=== PATIENT | female | born 1975 | race Hispanic/Latino ===

== ENCOUNTER 2024-04-28 23:26 | Emergency (ER) | payer OTHER ==
[2024-04-29] MEDS ORDERED: ONDANSETRON 4 MG/2 ML VIAL ONE (00:35)
[2024-04-29] MEDS ORDERED: MORPHINE 4 MG/ML SYR ONE (00:36)
[2024-04-29] MEDS ORDERED: NA CHLORIDE 0.9% 1,000 ML ONE (00:36)
[2024-04-29] MEDS ORDERED: LIDOCAINE 1% 20 ML MDV ONE (01:03)
[2024-04-29 01:04] LABS: Specific Gravity 1.013 (1.005-1.030); Sqamous Epithelial None Seen /HPF (None Seen); Urine Bacteria None Seen /HPF (<20); Urine Bilirubin NEGATIVE (Negative); Urine Blood Negative (Negative); Urine Clarity Extremely Turbid (Clear); Urine Color Light-Yellow (Yellow); Urine Culture Reflex Order NOT NEEDED; Urine Glucose NEGATIVE (Negative); Urine Ketones NEGATIVE (Negative); Urine Microscopic Reflex YN ORDER UMIC; Urine Nitrite NEGATIVE (Negative); Urine Protein NEGATIVE (Negative); Urine RBC None Seen /HPF (None Seen); Urine Urobilinogen Normal (Normal); Urine WBC None Seen /HPF (<5); Urine pH 6.5 (5.0-7.0)
[2024-04-29 01:14] LABS: Albumin 3.1 g/dL (3.4-5.0); Albumin/Globulin Ratio 0.6 (1.1-1.8); Anion Gap 9.9 mEq/L (5.0-15.0); Bilirubin Total 0.4 mg/dL (0.2-1.0); Potassium 3.9 mEq/L (3.5-5.1); Protein, Total 8.1 g/dL (6.4-8.2)
[2024-04-29 01:18] LABS: Absolute Basophils 0.1 K/uL (0-0.5); Absolute Eosinophils 0.2 K/uL (0-0.5); Absolute Lymphocytes (CBC) 2.7 K/uL (0.7-4.9); Absolute Monocytes 0.5 K/uL (0.1-1.3); Absolute Neutrophil 5.9 K/uL (1.8-8.0); Basophils % 0.9 % (0-1.3); Eosinophils % 1.7 % (0-4.4); Hematocrit 50.5 % (36.0-45.0); Hemoglobin 16.7 g/dL (12.0-15.0); Lymphocytes % 28.9 % (15.3-44.8); MCH 29.9 pg (27.0-35.0); MCV 90.5 fL (80-100); MPV 8.9 fL (7.6-11.3); Monocytes % 5.8 % (3.3-12.3); Neutrophils % 62.7 % (41.7-73.7); Nucleated Red Blood Cells % 0.1 % (0-0); Platelets 344 thou/uL (152-406); RBC Red Blood Cell Count 5.58 M/uL (3.86-4.86); Red Cell Distribution Width 14.1 % (12.1-15.2)
[2024-04-29] MEDS ORDERED: CLINDAMYCIN 900MG/D5W 900 MG/50 ML IVPB IV ONE (02:05)
--- NOTE | 2024-04-29 03:45 | EDPHYS ---
Physician Documentation [facility] Name: Angélica Murdock Age: 49 yrs Sex: Female : 1975 Arrival Date: 04/28/2024 Time: 23:26 Bed 6 Private MD: ED Physician Mari Cormier HPI: 04/28 23:50 This 49 yrs old Female presents to ER via Ambulatory with complaints of cp Abscess. 23:50 The patient presents with an abscess of the right pannus . Description: draining, cp erythematous, swollen. 23:50 Onset: The symptoms/episode began/occurred 3 day(s) ago. Possible cause(s): unknown. cp Associated signs and symptoms: Pertinent positives: drainage, erythema, Pertinent negatives: fever, vomiting. COLLISION ESTIMATOR: 23:51 LMP N/A - Post-menopause, Not vc1 Historical: - Allergies: 23:49 Augmentin; vc1 - PMHx: 23:49 Anxiety; Depression; Hypertension; Obesity; vc1 - PSHx: 23:49 myomectomy; Cholecystectomy; gastric bypass; vc1 - Immunization history:: Client reports having NOT received the Covid vaccine. Flu vaccine is not up to date. - Infectious Disease History:: Denies. - Social history:: Smoking status: Patient reports the use of cigarette tobacco products, smokes one-half pack cigarettes per day. ROS: 23:55 Constitutional: Negative for body aches, chills, fever, poor PO intake, cp 23:55 Cardiovascular: Negative for chest pain, palpitations, cp 23:55 Respiratory: Negative for cough, shortness of breath, wheezing, 23:55 Abdomen/GI: Positive for abdominal pain, of the umbilical area and right lower quadrant, Negative for vomiting, diarrhea, constipation, 23:55 Skin: Positive for abscess, of the right pannus, 23:55 Neuro: Negative for altered mental status, dizziness, weakness, 23:55 All other systems are negative, Exam: 23:58 Constitutional: The patient appears in no acute distress, alert, awake, non-toxic, well cp developed, well nourished, obese, uncomfortable, 23:58 Head/Face: Normocephalic, atraumatic. cp 23:58 Eyes: Periorbital structures: appear normal, Conjunctiva: normal, no exudate, no injection, Sclera: no appreciated abnormality, Lids and lashes: appear normal, bilaterally, 23:58 ENT: External ear(s): are unremarkable, Mouth: Lips: moist, Oral mucosa: moist, Posterior pharynx: Airway: no evidence of obstruction, patent, 23:58 Chest/axilla: Inspection: normal, 23:58 Cardiovascular: Rate: normal, 23:58 Respiratory: the patient does not display signs of respiratory distress, Respirations: normal, no use of accessory muscles, no retractions, 23:58 Abdomen/GI: Inspection: obese mild area of erythema right pannus with small open wound, no drainage expressed, tender to palpation, mild induration, 23:58 Back: pain, is absent, ROM is normal, cp 23:58 Neuro: Orientation: to person, place \T\ time. Mentation: is normal, Vital Signs: 23:48 Weight 167.83 kg; Height 5 ft. 1 in. ; Pain 8/10; vc1 23:53 BP 151 / 98; Pulse 94; Resp 18; Temp 99.8; Pulse Ox 100% ; vc1 12/03 02:34 BP 139 / 76; Pulse 89; Resp 18; Pulse Ox 98% ; cp4 03:55 BP 118 / 69; Pulse 87; Resp 18; Pulse Ox 98% ; cp4 12/02 23:48 Body Mass Index 69.91 (167.83 kg, 154.94 cm) vc1 12/02 23:48 Pain Scale: Adult vc1 MDM: 12/ 23:50 Medical Screening Exam initiated cp 04/29 00:00 Differential diagnosis: abscess, cellulitis, insect bite, sepsis. cp 02:00 Data reviewed: vital signs, nurses notes, lab test result(s). cp 02:00 ED course: VSS. Awaiting results of CT abdomen/pelvis. Will discharge to home with oral cp antibiotics if CT negative for abscess. 03:44 ED course: Discussed with patient adrenal gland results on CT. Outpatient follow-up sp3 with PCP will be the course. Continue current treatment plan as well.. 04/29 00:19 Order name: CBC with Diff; Complete Time: 01:27 cp 04/29 00:19 Order name: CMP; Complete Time: 01:16 cp 04/29 01:16 Interpretation: Normal except: GLUC 132; ALK 122; ALB 3.1; GLOB 5.0; A/G 0.6. cp 04/29 00:19 Order name: Lipase; Complete Time: 01:16 cp 04/29 00:19 Order name: Urinalysis w/ reflexes; Complete Time: 01:16 cp 04/29 00:19 Order name: CT Abd/Pelvis - IV Contrast Only cp 04/29 00:19 Order name: IV Saline Lock; Complete Time: 00:49 cp 04/29 00:19 Order name: Labs collected and sent; Complete Time: 00:49 cp 12 00:59 Order name: I\T\D Setup; Complete Time: 00:59 cp Administered Medications: 00:49 Drug: Ondansetron IVP 4 mg IVP once; over 2 minutes Route: IVP; Site: right antecubital;cp4 01:30 Follow up: Response: No adverse reaction cp4 00:49 Drug: NS 0.9% IV 1000 ml IV at 1 bolus Per protocol; to be given as a bolus over 60 cp4 minutes Route: IV; Rate: 1 bolus; Site: right antecubital; 02:14 Follow up: IV Status: Completed infusion cp4 00:49 Drug: morphine IVP or IV 4 mg IVP once over 4 mins Route: IVP; Infused Over: 4 mins; cp4 Site: right antecubital; 01:30 Follow up: Response: No adverse reaction; Pain is decreased cp4 02:14 Drug: Lidocaine Infiltration (2 %) 10 ml 5 ml Infiltration once; with epinephrine cp4 {Note: Given by provider.} Volume: 5 ml; Route: Infiltration; 02:14 Drug: Clindamycin IVPB 900 mg IVPB once over 30 mins; (mix in 50 mL) Route: IVPB; cp4 Infused Over: 30 mins; Site: right antecubital; 02:33 Follow up: IV Status: Completed infusion cp4 Disposition: 03:45 I agree with the assessment and plan of care. I reviewed the patient's care provided by sp3 Advanced Practice Provider \T\ agree w/ the diagnosis \T\ care plan. I personally saw the pt \T\ performed a substantive portion of the visit, incldng all aspects of the (History/Exam/Medical Decision Making). Disposition Summary: 04/29/24 03:45 Discharge Ordered Notes: Location: Home sp3 Problem: new sp3 Symptoms: have improved sp3 Condition: Stable sp3 Diagnosis - Cellulitis of abdominal wall sp3 Followup: cp - With: Kale Rangel MD - When: 2 - 3 days - Reason: Worsening of condition Discharge Instructions: - Discharge Summary Sheet cp - Cellulitis, Adult cp Forms: - Medication Reconciliation Form sp3 - Antibiotic Education sp3 - Prescription Opioid Use sp3 - Patient Portal Instructions sp3 - Leadership Thank You Letter sp3 Prescriptions: - Clindamycin HCl 300 mg Oral Capsule - take 1 capsule ORAL route every 6 hours for 10 days; 40 capsule; Refills: 0, cp Product Selection Permitted Signatures: Dispatcher [employer] EDMS Stewart Andino PA PA cp Mari Cormier MD MD sp3 Nori Olivares RN RN vc1 Zayra Csataneda cp4 Corrections: (The following items were deleted from the chart) 00:19 00:19 CBC+H.LAB.BRZ ordered. EDMS EDMS 00:19 00:19 COMPREHENSIVE METABOLIC PANEL+C.LAB.BRZ ordered. EDMS EDMS 00:19 00:19 LIPASE+C.LAB.BRZ ordered. EDMS EDMS 00:19 00:19 Urinalysis+U.LAB.BRZ ordered. EDMS EDMS
--- NOTE | 2024-04-29 03:45 | ER ---
Nurse's Notes [facility] Name: Angélica Murdock Age: 49 yrs Sex: Female : 1975 Arrival Date: 04/28/2024 Time: 23:26 Bed 6 Private MD: Diagnosis: Cellulitis of abdominal wall Presentation: 04/28 23:48 Chief complaint: Patient states: boil on right side of stomach and pressure on belly vc1 button. Coronavirus screen: Client denies travel out of the [place] in the last 14 days. At this time, the client does not indicate any symptoms associated with coronavirus-19. Ebola Screen: Patient negative for fever greater than or equal to 101.5 degrees Fahrenheit, and additional compatible Ebola Virus Disease symptoms Patient denies exposure to infectious person. Patient denies travel to an Ebola-affected area in the 21 days before illness onset. No symptoms or risks identified at this time. Initial Sepsis Screen: Does the patient meet any 2 criteria? No. Patient's initial sepsis screen is negative. Does the patient have a suspected source of infection? No. Patient's initial sepsis screen is negative. Risk Assessment: Do you want to hurt yourself or someone else? Patient reports no desire to harm self or others. Onset of symptoms was April 26, 2024. Care prior to arrival: None. 23:48 Method Of Arrival: Ambulatory vc1 23:48 Acuity: [place] 3 vc1 [place]: 23:51 LMP N/A - Post-menopause, Not vc1 Historical: - Allergies: 23:49 Augmentin; vc1 - PMHx: 23:49 Anxiety; Depression; Hypertension; Obesity; vc1 - PSHx: 23:49 myomectomy; Cholecystectomy; gastric bypass; vc1 - Immunization history:: Client reports having NOT received the Covid vaccine. Flu vaccine is not up to date. - Infectious Disease History:: Denies. - Social history:: Smoking status: Patient reports the use of cigarette tobacco products, smokes one-half pack cigarettes per day. Screenin:51 Abuse screen: Denies threats or abuse. Nutritional screening: No deficits noted. vc1 Tuberculosis screening: No symptoms or risk factors identified. 04/29 00:12 [facility] ED Fall Risk Assessment (Adult) History of falling in the last 3 months, cp4 including since admission No falls in past 3 months (0 pts) Confusion or Disorientation No (0 pts) Intoxicated or Sedated No (0 pts) Impaired Gait No (0 pts) Mobility Assist Device Used No (0 pt) Altered Elimination No (0 pt) Score/Fall Risk Level 0 - 2 = Low Risk Oriented to surroundings, Maintained a safe environment, Assessed \T\ reinforced patient's understanding of fall precautions, Hourly rounding (assess needs \T\ fall precautionary measures) done. Assessment: 00:12 General: Appears in no apparent distress. uncomfortable, Behavior is calm, cooperative, cp4 appropriate for age. Pain: Complains of pain in abdomen Pain does not radiate. Pain currently is 8 out of 10 on a pain scale. Neuro: Level of Consciousness is awake, alert, obeys commands, Oriented to person, place, time, situation. Cardiovascular: Patient's skin is warm and dry. Respiratory: Airway is patent Respiratory effort is even, unlabored. GI: No signs and/or symptoms were reported involving the gastrointestinal system. : No signs and/or symptoms were reported regarding the genitourinary system. EENT: No signs and/or symptoms were reported regarding the EENT system. Derm: Abscess located on abdomen is nickel sized, Reports pain that is 8 out of 10 on a pain scale. Vital Signs: 04/28 23:48 Weight 167.83 kg; Height 5 ft. 1 in. ; Pain 8/10; vc1 23:53 BP 151 / 98; Pulse 94; Resp 18; Temp 99.8; Pulse Ox 100% ; vc1 04/29 02:34 BP 139 / 76; Pulse 89; Resp 18; Pulse Ox 98% ; cp4 03:55 BP 118 / 69; Pulse 87; Resp 18; Pulse Ox 98% ; cp4 04/28 23:48 Body Mass Index 69.91 (167.83 kg, 154.94 cm) vc1 04/28 23:48 Pain Scale: Adult vc1 ED Course: 04/28 23:33 Patient arrived in ED. gm2 23:37 Stewart Andino PA is PHCP. cp 23:37 Mari Cormier MD is Attending Physician. cp 23:49 Triage completed. vc1 23:51 Arm band placed on right wrist. vc1 04/29 00:12 Placed in gown. Bed in low position. Call light in reach. Side rails up X2. cp4 00:33 Zayra Castaneda is Primary Nurse. cp4 00:48 Initial lab(s) drawn, by me, sent to lab. Urine collected: clean catch specimen, cp4 cloudy. Inserted saline lock: 20 gauge in right antecubital area, using aseptic technique. Blood collected. Flushed with 10 mL NS. 00:50 Radiology exam delayed due to lab results not completed at this time. (BUN/Creatinine). ls3 01:52 CT Abd/Pelvis - IV Contrast Only In Process Unspecified. EDMS 03:45 Kale Rangel MD is Referral Physician. sp3 03:55 Provided Education on: cellutlitis. cp4 03:55 Assist provider with I \T\ D: of an abscess on lower right abdomen Set up I\T\D tray. cp 4 Performed by Stewart PETERSON Dressing with 4X4s, tape Patient tolerated well. intact, bleeding controlled, No redness/swelling at site. Pressure dressing applied. Administered Medications: 00:49 Drug: Ondansetron IVP 4 mg IVP once; over 2 minutes Route: IVP; Site: right antecubital;cp4 01:30 Follow up: Response: No adverse reaction cp4 00:49 Drug: NS 0.9% IV 1000 ml IV at 1 bolus Per protocol; to be given as a bolus over 60 cp4 minutes Route: IV; Rate: 1 bolus; Site: right antecubital; 02:14 Follow up: IV Status: Completed infusion cp4 00:49 Drug: morphine IVP or IV 4 mg IVP once over 4 mins Route: IVP; Infused Over: 4 mins; cp4 Site: right antecubital; 01:30 Follow up: Response: No adverse reaction; Pain is decreased cp4 02:14 Drug: Lidocaine Infiltration (2 %) 10 ml 5 ml Infiltration once; with epinephrine cp4 {Note: Given by provider.} Volume: 5 ml; Route: Infiltration; 02:14 Drug: Clindamycin IVPB 900 mg IVPB once over 30 mins; (mix in 50 mL) Route: IVPB; cp4 Infused Over: 30 mins; Site: right antecubital; 02:33 Follow up: IV Status: Completed infusion cp4 Medication: 00:12 VIS not applicable for this client. cp4 Outcome: 03:45 Discharge ordered by . sp3 03:55 Discharged to home ambulatory, cp4 03:55 Condition: stable 03:55 Discharge instructions given to patient, Instructed on discharge instructions, follow up and referral plans. medication usage, Demonstrated understanding of instructions, follow-up care, medications, Prescriptions given X 1, 04:01 Patient left the ED. cp4 Signatures: Dispatcher [employer] EDMS Stewart Andino PA PA cp Georgina Barone ls3 Mari Cormier MD MD sp3 Nori Olivares RN RN 1 Zayra Castaneda cp4 Becca Meier 2
--- NOTE | 2024-04-29 03:59 | RAD REPORT ---
CT ABDOMEN PELVIS WITH IV CONTRAST CLINICAL INDICATION: Abdominal pain. History of myomectomy, cholecystectomy and gastric bypass. COMPARISON: CT abdomen and pelvis 11/23/2016 TECHNIQUE: CT images of the abdomen and pelvis obtained following administration of intravenous contr ast. Multiplanar reformats were provided. Dose-optimization techniques such as automated exposure control, iterative reconstruction, and mA and/or kV adjustment for patient size was utilized for this examination. FINDINGS: LOWER CHEST: Unremarkable. LIVER: Unremarkable. BILIARY: Status post cholecystectomy with surgical clips at gallbladder fossa. No intra- or extrahepa tic biliary ductal dilatation. PANCREAS: Unremarkable. SPLEEN: Unremarkable. ADRENALS: A bilobed left adrenal lesion is again seen, measuring up to 7.4 x 4.5 x 4.5 cm (AP x TV x CC). The anterior lobe with multifocal low-attenuation foci has mildly increased in size, measuring 4.4 x 4.4 cm (previously up to 3.7 cm). The posterior lobe is stable in size, measuring up to 3.0 cm. Right adrenal is unremarkable. KIDNEYS/URETERS: Unremarkable. STOMACH: Gastric bypass changes noted.. BOWEL: Unremarkable. APPENDIX: Appendix is not definitively visualized. No focal inflammation in right lower quadrant to s uggest acute appendicitis. MESENTERY/PERITONEUM: No free fluid or free air. No focal collection. RETROPERITONEUM: No adenopathy. URINARY BLADDER: Unremarkable. REPRODUCTIVE: Lobulated contour of uterus, suggesting fibroids. VASCULAR: No aortic aneurysm. ABDOMINAL/PELVIC WALL: Rectal diastasis and small fat-containing midline ventral hernia. BONES: No acute findings No compression deformity, nor osteolytic or sclerotic lesion. IMPRESSION: 1. Mildly increased in size and complexity of anterior lobe of a large left adrenal lesion, raising the concern for malignancy. Recommend surgical consultation. Consider biochemical lab evaluation for functional status and pheochromocytoma prior to resection. 2. Fibroid uterus. 3. Rectal diastasis and small fat-containing midline ventral hernia. Electronically signed by: Marga Thompson MD 04/29/2024 03:41 AM [facility] Due to temporary technical issues with the PACS/[employer] reporting system, reports are being daljit d by the in-house radiologist without review as a courtesy to ensure prompt reporting the interpreting radiologist is fully responsible for the content of the report. Transcribed Date/Time: 04/29/2024 3:58 AM
[2024-04-29 06:08] VITALS: TEMP 99.8
[2024-04-29 06:13] VITALS: O2SAT 98
[2024-04-29 06:14] VITALS: BP 118/69
== END 2024-04-29 04:01 | disposition home or self-care (01) ==
LOC: ER 23:26
DX: L02.211 Cutaneous abscess of abdominal wall (principal); I10 Essential (primary) hypertension; E66.9 Obesity, unspecified; Z98.84 Bariatric surgery status; F17.210 Nicotine dependence, cigarettes, uncomplicated; Z88.8 Allergy status to other drugs, medicaments and biological substances; Z88.1 Allergy status to other antibiotic agents
CPT/HCPCS: 85025; 81001; 36415; 83690; 80053; 74177; Q9967; J2003; J2405; J7030; 96361; 96365; 96375; 99284